=== PATIENT | male | born 1950 | race Caucasian/White ===

== ENCOUNTER 2019-06-29 15:31 | Emergency (ER) | payer MEDICARE ==
--- NOTE | 2019-06-29 15:49 | UC ---
Abdominal Pain Male HPI - HPI Summary HPI Summary: 69 yo male presents with abdominal pain. He tells me that this morning he developed RLQ abdominal pain with right flank pain that improved with the use of heated seats in his vehicle. Flank pain has improved, but RLQ pain has been persisting. He notes that this morning he was constipated with small hard stool. Last good BM was yesterday. Notes that over the last few weeks he has noticed his stool has been loose, but pencil thin. Last colonoscopy was last year and normal per pt was benign polyp. He still has his appendix and states he is concerned about this today. He is eating and drinking well. Denies fever, chills, SOB, chest pain, n/v/d, dysuria, current flank pain. - History of Current Complaint Chief Complaint: UCAbdominalPain Stated Complaint: ABD PAIN Time Seen by Provider: 06/29/19 15:49 Hx Obtained From: Patient Onset/Duration: Gradual Onset Severity Initially: Mild Severity Currently: Mild Pain Intensity: 4 Pain Scale Used: 0-10 Numeric - Allergies/Home Medications Allergies/Adverse Reactions: Allergies Allergy/AdvReac Type Severity Reaction Status Date / Time No Known Allergies Allergy Verified 06/29/19 15:45 Home Medications: Home Medications Atorvastatin* [Lipitor 40 MG*] 40 mg PO DAILY 06/29/19 [History Confirmed ] PMH/Surg Hx/FS Hx/Imm Hx Endocrine History: Dyslipidemia - Surgical History Surgical History: Yes Surgery Procedure, Year, and Place: right heel spur; r rotator cuff,skin graft eyelid - Family History Known Family History: Positive: Cardiac Disease, Hypertension - Social History Lives: With Family Alcohol Use: Rare Substance Use Type: None Smoking Status (MU): Former Smoker When Did the Patient Quit Smoking/Using Tobacco: 1985 - Immunization History Most Recent Influenza Vaccination: jun 2015 Review of Systems All Other Systems Reviewed And Are Negative: No Constitutional: Positive: Negative Skin: Positive: Negative Respiratory: Positive: Negative Cardiovascular: Positive: Negative Gastrointestinal: Positive: Abdominal Pain Genitourinary: Positive: Negative Neurological: Positive: Negative Psychological: Positive: Negative Physical Exam - Summary Physical Exam Summary: GENERAL: NAD. WDWN. No pain distress. SKIN: No rashes, sores, lesions, or open wounds. NECK: Supple. Nontender. No lymphadenopathy. CHEST: CTAB. No r/r/w. No accessory muscle use. Breathing comfortably and in no distress. CV: RRR. Pulses intact. Cap refill <2seconds ABDOMEN: Soft. Mild right mid abdominal tenderness. No CVA tenderness. Bowel sounds present. Negative mcburnery point tenderness. negative atkinson sign NEURO: Alert. PSYCH: Age appropriate behavior. Triage Information Reviewed: Yes Vital Signs: Initial Vital Signs Temp 97.9 F 06/29/19 15:41 Pulse 97 06/29/19 15:41 Resp 16 06/29/19 15:41 Pulse Ox 95 06/29/19 15:41 Vital Signs Reviewed: Yes Abd Pain Male Course/Dx - Course Course Of Treatment: Given pt's abdominal pain, constipation, and pencil thin stools - recommended he go to the ER for further evaluation. He was agreeable to this and will go there now - Differential Dx/Clinical Impression Provider Diagnosis: RLQ abdominal pain Discharge ED - Sign-Out/Discharge Documenting (check all that apply): Patient Departure All imaging exams completed and their final reports reviewed: No Studies - Discharge Plan Condition: Stable Disposition: HOME-RECOMMEND TO ED Referrals: Merlin Gaona MD [Primary Care Provider] - Additional Instructions: Please go to the ER for further evaluation of your RLQ abdominal pain - Billing Disposition and Condition Condition: STABLE Disposition: Home-Recommend to ED
[2019-06-29 16:07] VITALS: BP 137/85
== END 2019-06-29 16:05 | disposition home health service (06) ==
LOC: UCEAST 15:31
DX: N20.0 Calculus of kidney (principal); R10.31 Right lower quadrant pain; E78.5 Hyperlipidemia, unspecified; Z87.891 Personal history of nicotine dependence; Z79.899 Other long term (current) drug therapy; I10 Essential (primary) hypertension; Z85.828 Personal history of other malignant neoplasm of skin
CPT/HCPCS: 99212; G0463

== ENCOUNTER 2019-06-29 16:24 | Emergency (ER) | payer MEDICARE ==
[2019-06-29] MEDS ORDERED: NS 0.9% 1000 ML** 1,000 ML IV ONE (16:45)
[2019-06-29] MEDS ORDERED: Ketorolac INJ* 30 MG/ML 1 ML VIAL IV PUSH ONE (16:45)
--- NOTE | 2019-06-29 16:50 | ED ---
GI/ HPI - HPI Summary HPI Summary: 69-year-old male presents with right side pain today. He states that pain started in his right flank and moved to his RLQ. He denies any dysuria. No hematuria. no history of kidney stones. he denies any nausea, vomiting, diarrhea or constipation. no fevers. never had this pain before. the pain in his back has resolved and now just has RLQ. He has no medical conditions. No previous abd surgeries. did not take anything for pain. - History of Current Complaint Chief Complaint: EDAbdPain Time Seen by Provider: 06/29/19 16:27 Stated Complaint: RT FLANK PAIN PER PT Pain Intensity: 6 - Allergy/Home Medications Allergies/Adverse Reactions: Allergies Allergy/AdvReac Type Severity Reaction Status Date / Time No Known Allergies Allergy Verified 06/29/19 15:45 Home Medications: Home Medications Meloxicam(NF) [Mobic(NF)] 7.5 - 15 mg PO DAILY 06/29/19 [History Confirmed 06/29] PMH/Surg Hx/FS Hx/Imm Hx Endocrine/Hematology History: Denies: Hx Diabetes Cardiovascular History: Reports: Hx Hypertension - no meds History: Denies: Hx Dialysis, Hx Renal Disease - Cancer History Cancer Type, Location and Year: skin non melanoma - Surgical History Surgery Procedure, Year, and Place: right heel spur; r rotator cuff,skin graft eyelid Infectious Disease History: No Infectious Disease History: Denies: Hx Clostridium Difficile, Hx Hepatitis, Hx Human Immunodeficiency Virus (HIV), Hx of Known/Suspected MRSA, Hx Shingles, Hx Tuberculosis, Hx Known/ Suspected VRE, Hx Known/Suspected VRSA, History Other Infectious Disease, Traveled Outside the in Last 30 Days - Family History Known Family History: Positive: Cardiac Disease, Hypertension - Social History Alcohol Use: Rare Substance Use Type: Reports: None Smoking Status (MU): Former Smoker Review of Systems Negative: Fever Negative: Chest Pain Negative: Shortness Of Breath Positive: Abdominal Pain. Negative: Vomiting, Diarrhea, Nausea Positive: flank pain All Other Systems Reviewed And Are Negative: Yes Physical Exam Triage Information Reviewed: Yes Vital Signs On Initial Exam: Initial Vitals Temp Pulse Resp BP Pulse Ox 97.9 F 94 18 162/90 94 06/29/19 16:28 06/29/19 16:28 06/29/19 16:28 06/29/19 16:28 06/29/19 16:28 Vital Signs Reviewed: Yes Appearance: Positive: Well-Appearing Skin: Positive: Warm, Dry Head/Face: Positive: Normal Head/Face Inspection Eyes: Positive: Normal, Conjunctiva Clear ENT: Positive: Pharynx normal Respiratory/Lung Sounds: Positive: Clear to Auscultation, Breath Sounds Present Cardiovascular: Positive: Normal, RRR Abdomen Description: Positive: Soft, CVA Tenderness (R), Other: - tenderness in RLQ. Negative: CVA Tenderness (L) Bowel Sounds: Positive: Present Musculoskeletal: Positive: Normal Neurological: Positive: Normal Psychiatric: Positive: Normal Procedures - Sedation Patient Received Moderate/Deep Sedation with Procedure: No Diagnostics - Vital Signs Vital Signs Temp Pulse Resp BP Pulse Ox 06/29/19 16:28 97.9 F 94 18 162/90 94 - Laboratory Result Diagrams: 06/29/19 16:54 06/29/19 16:54 Lab Statement: Any lab studies that have been ordered have been reviewed, and results considered in the medical decision making process. - CT abd CT Interpretation Completed By: Radiologist Summary of CT Findings: IMPRESSION: 1. Mild right hydroureteronephrosis with perinephric and periureteral stranding. No radiopaque calculus identified. No excreted IV contrast noted in right collecting system on delayed images. These findings could be secondary to non radiopaque calculus or recently passed stone , but ascending urinary tract infection is not excluded. Correlate with clinical symptoms and UA. 2. While the appendix is mildly dilated measuring 8 mm , lack of periappendiceal stranding and presence of air and contrast within the appendix make acute appendicitis unlikely. However, if symptoms persist, follow- up CT could be performed to reassess. Re-Evaluation - Re-Evaluation First Eval Re-Evaluation Time: 17:51 Change: Improved Comment: pain better after toradol Second Eval Re-Evaluation Time: 21:34 Change: Improved Comment: nontender abd GIGU Course/Dx - Course Course Of Treatment: 69-year-old male presents with right side abd pain today. He states that pain started in his right flank and moved to his RLQ. no urinary symptoms. he denies any nausea, vomiting, diarrhea or constipation. no fevers. never had this pain before. the pain in his back has resolved and now just has RLQ. He has no medical conditions. No previous abd surgeries. did not take anything for pain. On exam has tenderness in right lower quadrant. wbc 14. crp normal. urine shows no infection. CT shows hydrourronephrosis with no stone seen. appendix is mildely dilated. patient on reevulation has no abdomen pain. nontender abd on exam. discussed case with dr waters. explained likely kidney stone that passed. told if develop fever or any worsening symptoms to return. patient understand and agrees with plan. - Diagnoses Differential Diagnoses - Male: Appendicitis, Ureteral Calculi, Urinary Tract Infection Provider Diagnoses: Kidney stone Discharge ED - Sign-Out/Discharge Documenting (check all that apply): Patient Departure - Discharge Plan Condition: Good Disposition: HOME Patient Education Materials: Kidney Stones (ED) Referrals: No Primary Care NIDIA العلي [Medical Doctor] - Justin Chance MD [Medical Doctor] - Additional Instructions: drink plenty of fluids take Tylenol or ibuprofen every 6 hours for pain Follow up with urology follow up with primary Return to ED if develop fever, worsening pain, or any new or worsening symptoms - Billing Disposition and Condition Condition: GOOD Disposition: Home
[2019-06-29 17:04] LABS: ABS Eosinophils 0.1 10^3/ul (0-0.6); ABS Lymphocytes 0.9 10^3/ul (1.0-4.8); ABS Monocytes 1.2 10^3/ul (0-0.8); Eosinophil % 0.4 %; Hematocrit 48 % (42-52); Hemoglobin 16.4 g/dL (14.0-18.0); Lymphocyte % 6.6 %; Mean Corpuscular HGB Conc 34 g/dL (31-36); Mean Corpuscular Hemoglobin 29 pg (27-31); Mean Corpuscular Volume 84 fL (80-94); Mean Platelet Volume 7.4 fL (7.4-10.4); Nucleated Red Blood Cells % 0.3; Platelet Count 220 10^3/uL (150-450); Red Blood Count 5.76 10^6 /uL (4.18-5.48); Red Cell Distribution Width 14 % (10-15); White Blood Count 14.2 10^3/uL (3.5-10.8)
[2019-06-29 17:24] LABS: Albumin 4.6 g/dL (3.2-5.2); Albumin/Globulin Ratio 1.8 (1-3); BUN/Creatinine Ratio 22.3 (8-20); C Reactive Protein 2.84 mg/L (<8.01); Calcium 9.8 mg/dL (8.6-10.3); EGFR African American 78.2 (>60); EGFR Non-African American 64.6 (>60); Globulin 2.6 g/dL (2-4); Potassium 4.4 mmol/L (3.5-5.0); Total Bilirubin 0.5 mg/dL (0.2-1.0); Total Protein 7.2 g/dL (6.4-8.9)
[2019-06-29] MEDS ORDERED: Iohexol 300* (CONTRAST) 10 ML SDV IV ONE (18:53)
[2019-06-29 19:04] LABS: Urine Appearance Clear; Urine Bilirubin Negative (Negative); Urine Blood Negative (Negative); Urine Color Yellow; Urine Glucose Negative (Negative); Urine Ketones Negative (Negative); Urine Nitrite Negative (Negative); Urine Protein Negative (Negative); Urine Specific Gravity 1.015 (1.010-1.030); Urine Urobilinogen Negative (Negative)
[2019-06-29 22:00] VITALS: BP 0/0
== END 2019-06-29 21:59 | disposition home or self-care (01) ==
LOC: ED 16:24
DX: N20.0 Calculus of kidney (principal); I10 Essential (primary) hypertension; Z87.891 Personal history of nicotine dependence; Z85.828 Personal history of other malignant neoplasm of skin; Z79.899 Other long term (current) drug therapy
CPT/HCPCS: 36415; 74177; 80053; 81003; 83605; 83690; 85025; 86140; 96361; 96374; 99283; J1885; Q9967